=== PATIENT | male | born 1960 | race Caucasian/White ===

== ENCOUNTER 2025-05-23 08:28 | Day surgery (SDC) | payer OTHER, SELFPAY ==
[2025-05-20 11:15] VITALS: BMI 26.0
[2025-05-23] MEDS ORDERED: fentaNYL PF 100 MCG/2 ML SYRINGE ONE (10:03)
[2025-05-23] MEDS ORDERED: Lidocaine 1% PF 5 ML VIAL ONE (10:04)
[2025-05-23] MEDS ORDERED: Heparin 5,000 UNITS/ML VIAL ONE (10:25)
[2025-05-23] MEDS ORDERED: Tranexamic Acid 1,000 MG/10 ML VIAL ONE (10:25)
[2025-05-23] MEDS ORDERED: Bupivacaine 0.25% HCL 30 ML VIAL ONE ×2 (10:26→11:37)
[2025-05-23] MEDS ORDERED: CEFAZOLIN 2 GM VIAL ONE (11:17)
[2025-05-23] MEDS ORDERED: PROPOFOL 200 MG/20 ML VIAL ONE (11:25)
[2025-05-23] MEDS ORDERED: MINERAL OIL/WHITE PETROLATUM 3.5 GM TUBE ONE (11:31)
[2025-05-23] MEDS ORDERED: Ondansetron PF 4 MG/2 ML Vial ONE (11:38)
[2025-05-23] MEDS ORDERED: Glycopyrrolate 0.2 MG/ML 5 ML SYRINGE ONE (11:50)
== END 2025-05-23 16:02 | disposition home or self-care (01) ==
LOC: SDC 08:28
PROVIDERS: ATTEND Plastic Surgery
DX: C43.71 Malignant melanoma of right lower limb, including hip (principal); D09.8 Carcinoma in situ of other specified sites; L57.0 Actinic keratosis; I10 Essential (primary) hypertension; Z79.899 Other long term (current) drug therapy
CPT/HCPCS: 88305; 88307; 88331; 88332; 88342; A6258; C1713; J0169; J0665; J1100; J1644; J2405; J2704; J3010; Q9968

== ENCOUNTER → 2025-05-23 | Day surgery (SDC) | payer OTHER | LOC: NM 07:20 | PROVIDERS: ATTEND Plastic Surgery | DX: C43.71 Malignant melanoma of right lower limb, including hip (principal) | CPT/HCPCS: 78195; 97139; A9541 ==